=== PATIENT | male | born 1965 | race Caucasian/White ===

== ENCOUNTER 2017-04-04 16:24 | Emergency (ER) | payer OTHER ==
[~2017-04-04] VITALS: Ht 182.9 cm; Wt 104.3 kg
[~2017-04-04 16:24] MED LIST: MOBIC15 MG PO; MOTRIN800 MG PO; PERCOCET 325 MG1 TA2 PO; PROAIR HFA0.09 MG/Ac INH
[2017-04-04 16:28] VITALS: BP 118/79
--- NOTE | 2017-04-04 17:28 | ED ANIMAL BITE/WOUND CHECK ---
History of Present Illness General Chief Complaint: Laceration Procedure Stated Complaint: RT ARM LAC Source: patient Exam Limitations: no limitations Vital Signs & Intake/Output Vital Signs & Intake/Output Vital Signs Date Time Temp Pulse Resp B/P B/P Pulse O2 O2 Flow FiO2 Mean Ox Delivery Rate 04/04 1628 97.8 84 18 118/79 95 Room Air Allergies Coded Allergies: NO KNOWN ALLERGIES (01/11/12) Reconcile Medications Albuterol Sulfate (Proair Hfa) 0.09 MG/Actuation LYNDSEY 1 INH DAILY ASTHMA ( Reported) Meloxicam (Mobic) 15 MG TAB 1 TAB PO DAILY PRN PAIN OXYCODONE HCL/ACETAMINOPHEN (Percocet 5-325 MG Tablet) 325 MG/5 MG TAB 1 TAB PO Q4-6 PRN PRN PAIN Triage Note: 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 PT NOTED WITH 4 CM LAS TO L FOREARM Triage Nurses Notes Reviewed? yes HPI: Mr. Gong is a 51-year-old male that is otherwise healthy sustaining a laceration while at work. Patient had just cleaned the scraper that he uses for pain and sharp and it earlier that day. Scraper was in his pocket when his arm landed on it causing a 4.5 cm laceration with some exposed subcutaneous fat. Patient's last tetanus was 2 years ago. Scraper was clean without any pain on it. He denies any bleeding issues in his medical history or family medical history. Despite bandaging at home, wound continued to bleed. (JAY CHOW MD) Past History Travel History Traveled to [place] past 21 day No Medical History Any Pertinent Medical History? 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 No (JAY CHOW MD) Review of Systems Review of Systems Constitutional: Reports: no symptoms. EENTM: Reports: no symptoms. Respiratory: Reports: no symptoms. Cardiovascular: Reports: no symptoms. GI: Reports: no symptoms. Musculoskeletal: Reports: no symptoms. Skin: Reports: lesions (laceration to R lower arm). Neurological/Psychological: Reports: no symptoms. Hematologic/Endocrine: Reports: no symptoms. Immunologic/Allergic: Reports: no symptoms. All Other Systems: Reviewed and Negative (JAY CHOW MD) Physical Exam Physical Exam General Appearance: well developed/nourished, mild distress Head: atraumatic Eyes: Bilateral: PERRL, EOMI. Ears, Nose, Throat: normal pharynx, normal ENT inspection, hearing grossly normal Neck: normal inspection, supple Respiratory: normal breath sounds Cardiovascular: regular rate/rhythm Gastrointestinal: soft, non-tender Back: normal inspection Extremities: normal range of motion Neurologic/Psych: awake, alert, oriented x 3, normal mood/affect Skin: 4.5 cm laceration to R lower arm on medial surface w/ some exposed subcutaneous fat. No evidence of trauma to tendons. Pt's sensation, ROM, and strength intact distal to laceration Lymphatic: no anterior cervical thalia (JAY CHOW MD) Progress Differential Diagnosis: laceration, wound infection, foreign body Plan of Care: 51-year-old male that is otherwise healthy sustaining a laceration while at work. Patient had just cleaned the scraper that he uses for pain and sharp and it earlier that day. Scraper was in his pocket when his arm landed on it causing a 4.5 cm laceration with some exposed subcutaneous fat. Patient's last tetanus was 2 years ago. Scraper was clean without any pain on it. He denies any bleeding issues in his medical history or family medical history. Despite bandaging at home, wound continued to bleed. Wound was prepped with oral saline and Betadine. Patient was anesthetized with lidocaine 1% approximately 10 mL. After that the wound was irrigated extensively. One subcutaneous Vicryl suture was placed to approximate the skin. For superficial nonabsorbable Prolene sutures were placed simple interrupted. Patient tolerated procedure well. Return precautions given for signs of infection. Sterile dressing with bacitracin was applied to the wound. Patient is discharged home with instructions to return in 5-7 days for suture removal. (JAY CHOW MD) Departure Departure Time of Disposition: 1813 Disposition: HOME OR SELF CARE Condition: Stable Clinical Impression Primary Impression: Laceration of arm Qualifiers: Encounter type: initial encounter Laterality: right Qualified Code: S41.111A - Laceration without foreign body of right upper arm, initial encounter Ruled Out Impressions: Laceration of right upper arm Referrals: PATIENT HAS NO PRIMARY CARE DR (PCP/Family) Additional Instructions: Please leave the dressing applied here in the emergency department on for the first 24 hours. After that you can regularly wash your arm with normal soap and water. After you shower, pat the laceration dry as to not tugging on any of the sutures and apply a thin layer of bacitracin. You can apply either Band-Aid to her small piece of gauze and tape. If there is evidence of infection such as redness, swelling, pus or any other concerning symptoms, please present to the emergency department for further evaluation. Have your sutures removed in 7 days. Departure Forms: Customer Survey General Discharge Information (JAY CHOW MD) PA/[employer] Co-Sign Statement Statement: ED Attending supervision documentation- [] I saw and evaluated the patient. I have also reviewed all the pertinent lab results and diagnostic results. I agree with the findings and the plan of care as documented in the PA's/[employer]'s documentation. [X] I have reviewed the ED Record and agree with the PA's/[employer]'s documentation. [] Additions or exceptions (if any) to the PAs/[employer]'s note and plan are summarized below: [] (NEIL DE LA CRUZ DO) Procedures Laceration/Wound Repair Laceration/Wound Repair: Wound Location: upper extremity, R lower arm, medial surface Wound's Depth, Shape: linear, subcutaneous Wound Length (cm): 4.5 Wound Explored: clean, no foreign body removed, irrigated extensively Irrigated w/ Saline (ccs): 250 Betadine Prep? Yes Anesthesia: lidocaine w/ epi 1% Volume Anesthetic (ccs): 10 Wound Debrided: minimal Wound Repaired With: sutures Suture Size/Type: 4:0 Number of Sutures: 4 Layer Closure? Yes Deep Layer Suture Size/Type: 5:0 Number Deep Layer Sutures: 1 Sterile Dressing Applied: Yes Splint Applied? No By Who? by me Tetanus Status: up to date (JAY CHOW MD)
== END 2017-04-04 18:30 ==
LOC: ERH 16:24
DX: S51.811A Laceration without foreign body of right forearm, initial encounter (principal); W45.8XXA Other foreign body or object entering through skin, initial encounter; Y93.89 Activity, other specified; Y92.9 Unspecified place or not applicable